=== PATIENT | female | born 1960 | race Caucasian/White ===

== ENCOUNTER → 2018-12-04 10:33 | Outpatient (CLI) | payer OTHER, SELFPAY ==
--- NOTE | 2018-12-04 | DI.RAD.S_ITS ---
PROCEDURE: XR PELVIS 1-2V INDICATIONS: FELL ON BUTT TECHNIQUE: 2 view(s) of the pelvis acquired. COMPARISON: [facility], , L-SPINE 2-3 VIEWS, 05/17/2015, 18:18. FINDINGS: Bones: No fractures or dislocations. No suspicious bony lesions. There is a right hip arthroplasty with prosthesis in anatomic alignment. Moderate degenerative joint disease in left hip and sacroiliac joints bilaterally. There is moderate-to- severe L4-L5 disc degeneration. Soft tissues: Visualized bowel gas pattern is normal. No suspicious soft tissue calcifications. IMPRESSION: 1. No acute bony injuries. 2. Right hip arthroplasty. 3. Moderate degenerative joint disease in left hip and sacroiliac joints bilaterally. 4. Moderate to severe degenerative disc disease at L4-L5. Dictated by: Jasmine Marte M.D. on 12/04/2018 at 11:36 Approved by: Jasmine Marte M.D. on 12/04/2018 at 11:38
--- NOTE | 2018-12-04 | DI.RAD.S_ITS ---
PROCEDURE: XR LUMBAR SPINE 2-3V INDICATIONS: FELL ON BUTT TECHNIQUE: 3 views of the lumbar spine were acquired. COMPARISON: [facility], , L-SPINE 2-3 VIEWS, 05/17/2015, 18:18. FINDINGS: Bones: 5 [id number] vertebrae are present. There is minimal retrolisthesis of L5 on S1. There is mild vertebral body compression fracture of L1 involving the anterior superior endplate. The fracture is new since the last exam and most likely acute. No suspicious bony lesions. Degenerative disease disease is present, moderate to severe at L4-L5 and L5-S1. There is moderate facet arthropathy at L3-L4 and L4-L5 and severe facet arthropathy at L5-S1. Soft tissues: Overlying bowel gas pattern is normal. No suspicious soft tissue calcifications. IMPRESSION: 1. Mild compression fracture of L1. 2. Degenerative disc and facet disease. Dictated by: Jasmine Marte M.D. on 12/04/2018 at 11:38 Approved by: Jasmine Marte M.D. on 12/04/2018 at 11:44
== END ==
PROVIDERS: Visit Provider Chiropractor
DX: S32.019A Unspecified fracture of first lumbar vertebra, initial encounter for closed fracture (principal); M99.03 Segmental and somatic dysfunction of lumbar region; M16.12 Unilateral primary osteoarthritis, left hip; M47.898 Other spondylosis, sacral and sacrococcygeal region; M51.36 Other intervertebral disc degeneration, lumbar region; M51.37 Other intervertebral disc degeneration, lumbosacral region; M47.816 Spondylosis without myelopathy or radiculopathy, lumbar region; M47.817 Spondylosis without myelopathy or radiculopathy, lumbosacral region; W19.XXXA Unspecified fall, initial encounter; Z96.641 Presence of right artificial hip joint
CPT/HCPCS: 72100; 72170

== ENCOUNTER → 2018-12-23 10:14 | Outpatient (CLI) | payer OTHER, SELFPAY | PROVIDERS: Visit Provider Internal Medicine | DX: S32.010A Wedge compression fracture of first lumbar vertebra, initial encounter for closed fracture (principal); Z82.62 Family history of osteoporosis | CPT/HCPCS: 77080 ==

== ENCOUNTER 2019-04-25 13:56 | Emergency (ER) | payer OTHER, SELFPAY ==
[2019-04-25 14:07] VITALS: BP 155/73; PULSE 104; RESP 20; TEMP 39.3; O2SAT 97; BMI 31.3
[2019-04-25 14:57] LABS: Influenza A - CEPHEID Flu A POSITIVE (NEGATIVE); Influenza B - CEPHEID Flu B NEGATIVE (NEGATIVE)
--- NOTE | 2019-04-25 18:47 | ED_ITS ---
HPI - URI/Sore Throat General Chief Complaint: Upper Respiratory Symptoms Stated Complaint: body aches, fever 101.4, pain Time Seen by Provider: 04/25/19 15:24 Source: patient Mode of arrival: Ambulatory Limitations: no limitations History of Present Illness HPI Narrative: 50-year-old female nonsmoker with history of hyperglycemia presents with her in the chief complaint of 24 hours of fever as high as 101, dry hacking cough, mild headache, sore throat and body aches. She did not get her flu shot this year. She denies any nausea, vomiting or diarrhea. She is not dizzy nor weak or lightheaded. MD Complaint: fever, cough and sore throat Onset (ago): hour(s) Duration: constant Severity: moderate Relieving factors: nothing Exacerbating factors: nothing Able to tolerate fluids by mouth: Yes Associated symptoms: fever, chills, myalgias, headache, sore throat and cough Treatments prior to arrival: acetaminophen and ibuprofen Related Data Home Medications Medication Instructions Recorded Confirmed ibuprofen [Advil] 200 mg PO Q6HP PRN #0 03/23/16 Previous Rx's Medication Instructions Recorded tretinoin [Retin-A] 1 anitha TOPICAL Q DAY #20 gm 02/02/16 cefixime [Suprax] 400 mg PO QDAY #5 tab 03/24/16 metronidazole 500 mg PO TID #15 tab 03/24/16 oseltamivir [Tamiflu] 75 mg PO BID 5 Days #10 cap 04/25/19 Allergies Allergy/AdvReac Type Severity Reaction Status Date / Time No Known Drug Allergies Allergy Verified 04/25/19 14:15 Review of Systems Constitutional Constitutional: Reports chills, Denies fatigue, Reports fever(s), Denies frequent falls, Reports headache(s), Denies lethargy and Denies weakness Eyes Eyes: Denies change in vision, Denies eye discharge, Denies irritation and Denies loss of vision ENT Ears, Nose, Mouth, and Throat: Denies change in voice, Denies dizziness, Reports headache(s), Denies neck pain, Reports sore throat and Denies throat swelling Cardiovascular Cardiovascular: Denies chest pain, Denies irregular heart rhythm, Denies lightheadedness, Denies palpitations, Denies dyspnea, Denies dyspnea on exertion and Denies orthopnea Respiratory Respiratory: Reports cough, Denies dyspnea, Denies dyspnea on exertion and Denies wheezing Gastrointestinal Gastrointestinal: Denies abdominal pain, Denies change in bowel habits, Denies diarrhea, Denies nausea and Denies vomiting Genitourinary Genitourinary: Denies hematuria, Denies flank pain, Denies urinary incontinence and Denies urinary urgency Musculoskeletal Musculoskeletal: Denies back pain, Denies muscle weakness, Denies neck pain, Denies numbness and Denies tingling Integumentary/Breasts Skin/Breast: Denies pruritus, Denies erythema, Denies rash and Denies wounds Neurologic Neurologic: Denies behavioral changes, Denies confusion, Denies dizziness, Denies frequent falls, Reports headache(s), Denies loss of vision, Denies numbness, Denies tingling and Denies weakness Psychiatric Psychiatric: Denies anxiety, Denies behavioral changes, Denies confusion, Denies depression, Denies homicidal ideation and Denies suicidal ideation Endocrine Endocrine: Denies fatigue, Denies flushing and Denies palpitations Hematologic/Lymphatic Hematologic/Lymphatic: Denies easy bruising Allergic/Immunologic Allergic/Immunologic: Denies urticaria, Denies throat swelling and Denies wheezing Patient History Medical History Acne (Chronic) Cyst (Resolved ~2013) Depression (Resolved ~2011) Glaucoma (Chronic 1999) Osteoarthritis (Chronic) Osteoporosis (Chronic ~02/2016) Vitamin D deficiency (Resolved ~08/2015) Surgical History History of knee replacement (Resolved 2010) History of total right hip arthroplasty (Resolved 2013) Hx of bilateral breast implants (Resolved) Hx of eye surgery (Resolved 1999) Hx of removal of cyst (Resolved) Family History Son No problems noted. Father No problems noted. Mother No problems noted. Social History Smoking Status: Never smoker Smoking Status: Never smoker Substance Use Type: does not use Exam Narrative Exam Narrative: GENERAL: [58] year old patient appears stated age. Well- nourished, well-developed patient, in mild distress. HEAD: Atraumatic. Normocephalic. EYES: Pupils equal round and reactive. Extraocular motions intact. No scleral icterus. No injection or drainage. ENT: Nose without bleeding, purulent drainage. Throat without erythema, tonsillar hypertrophy or exudate. Airway patent. NECK: Trachea midline. Non tender CARDIOVASCULAR: Regular rate and rhythm without murmurs, gallops, or rubs. RESPIRATORY: Clear to auscultation. Breath sounds equal bilaterally. No wheezes, rales, or rhonchi. GASTROINTESTINAL: Abdomen soft, non-tender, nondistended. EXTREMITIES: No edema or joint tenderness. BACK: Nontender without deformity or crepitance. No flank tenderness. NEURO: AOx3. SKIN: No rash or erythema of visible areas Initial Vital Signs Initial Vital Signs: Vital Signs Temperature 102.8 F H 04/25/19 14:07 Pulse Rate 104 H 04/25/19 14:07 Respiratory Rate 20 04/25/19 14:07 Blood Pressure 155/73 H 04/25/19 14:07 Pulse Oximetry 97 04/25/19 14:07 Course Orders Ordered: ED Orders 04/25/19 14:28 Influenza A & B (PCR) Stat Vital Signs Vital signs: Vital Signs - 8 hr 04/25/19 14:07 Temperature 102.8 F H Pulse Rate 104 H Respiratory Rate 20 Blood Pressure 155/73 H Pulse Oximetry 97 MDM - URI/Sore Throat Medical Records Medical records narrative: Patient with flu positive swab demonstrates no signs of respiratory distress. She has clear lung sounds. She does not feel weak, tolerates oral hydration and has no immunocompromise. We discussed doings labs and administering fluids, but she'd prefer to just get her prescription and go home. She is febrile and slightly tachycardic but unlikely to be truly septic. She demonstrates no signs of compromised perfusion. Lab Data Labs: Lab Results 04/25/19 Range/Units 14:28 Influenza A (RT-PCR) Flu a positive H (NEGATIVE) Influenza B (RT-PCR) Flu b negative (NEGATIVE) Discharge Plan Departure Patient Disposition: Home Clinical Impression: Influenza A Discharge Date/Time: 04/25/19 15:49 Instructions: DI for Influenza -- Adult Activity Restrictions/Additional Instructions: *You have been diagnosed with [influenza a] *What to do: *Take medications as directed *Follow up with your primary care provider in 2-3 days, call for an appointment. Let them know you were seen in the Emergency Department and that we ask that you be seen in follow up *Return to ER if you should have any new, worsening or concerning symptoms Prescriptions: New oseltamivir [Tamiflu] 75 mg capsule 75 mg PO BID 5 Days Qty: 10 RF: 0 No Action tretinoin [Retin-A] 0.025 % cream 1 anitha Topical Q DAY Qty: 20 RF: 3 ibuprofen [Advil] 200 MG tablet 200 mg PO Q6HP PRNQty: 0 RF: 0 cefixime [Suprax] 400 MG capsule 400 mg PO QDAY Qty: 5 RF: 0 metronidazole 500 MG tablet 500 mg PO TID Qty: 15 RF: 0
== END 2019-04-25 15:49 | disposition home or self-care (01) ==
PROVIDERS: Emergency Provider Emergency Medicine
DX: J10.1 Influenza due to other identified influenza virus with other respiratory manifestations (principal)
CPT/HCPCS: 87502; 99281; 99283

== ENCOUNTER → 2020-08-08 19:22 | Outpatient (ROUT) | payer OTHER, SELFPAY ==
[2020-08-10 06:27] LABS: SARS-CoV-2 Antibody Titer <0.4 U/mL (<0.8)
== END ==
PROVIDERS: Visit Provider Internal Medicine
DX: Z20.822 Contact with and (suspected) exposure to COVID-19 (principal)
CPT/HCPCS: 86769

== ENCOUNTER → 2024-08-03 16:38 | Outpatient (CLI) | payer OTHER, SELFPAY ==
--- NOTE | 2024-08-03 16:39 | DI.MRI.S_ITS ---
PROCEDURE: MR ABDOMEN RENAL PROTOCOL INDICATIONS: 63 y/o F w/ microscopic hematuria, eval upper tracts. TECHNIQUE: Coronal HASTE through abdomen and pelvis; axial 2D FLASH in- and [id number] (with and without fat saturation), and breath-hold T2 FSE from the hepatic dome to the bottom of the kidneys. Coronal HASTE MR urogram of kidneys and bladder. Dynamic coronal VIBE during IV gadolinium administration; postgadolinium axial VIBE or 2D FLASH with fat saturation from the hepatic dome through the kidneys. COMPARISON: None. FINDINGS: Image quality: Diagnostic. Kidneys and Ureters: No hydronephrosis. No solid mass. No complex renal cystic lesion which requires follow up. OTHER: Lung bases: Unremarkable. Liver: No solid mass. Gallbladder: There is a small calculus in the gallbladder. No inflammatory changes. Biliary ducts: No biliary dilation. Pancreas: No ductal dilation. Spleen: Size is within normal limits. Adrenal Glands: No adrenal nodules. Stomach and Bowel: Normal colonic caliber, without significant wall thickening. Peritoneum: No abnormal intraperitoneal fluid. No free air. Ventral Wall: No hernia. Abdominal Nodes: No retroperitoneal or mesenteric adenopathy by size criteria. Vessels: Aorta and inferior vena cava are normal in size. Bones: No aggressive osseous abnormality. Multiple fibroids measuring up to 6.3 cm on the left. Endometrium appears unremarkable. IMPRESSION: 1. No suspicious focal lesions in the kidneys and upper tracts. No hydronephrosis. 2. Cholelithiasis. 3. Multiple large uterine fibroids. Dictated by: Darci Adler M.D. on 08/03/2024 at 21:56 Approved by: Darci Adler M.D. on 08/03/2024 at 22:07
== END ==
PROVIDERS: PCP Family Medicine; Referring Provider Urology; Visit Provider Urology
DX: R31.29 Other microscopic hematuria (principal); K80.20 Calculus of gallbladder without cholecystitis without obstruction; D25.9 Leiomyoma of uterus, unspecified
CPT/HCPCS: 74183; A9579

== ENCOUNTER → 2025-01-13 09:14 | Outpatient (CLI) | payer OTHER, SELFPAY | LOC: ECHO 09:15 | PROVIDERS: PCP Family Medicine; Referring Provider Family Medicine; Visit Provider Family Medicine | DX: I07.1 Rheumatic tricuspid insufficiency (principal); I77.89 Other specified disorders of arteries and arterioles; R01.1 Cardiac murmur, unspecified | CPT/HCPCS: 93306 ==